=== PATIENT | male | born 1985 | race Two or more races ===

== ENCOUNTER 2021-04-30 02:21 | Emergency (ER) | payer OTHER ==
[~2021-04-30] VITALS: Ht 167.6 cm; Wt 99.8 kg
[2021-04-30 05:55] VITALS: BP 142/80
== END 2021-04-30 06:05 | disposition home or self-care (01) ==
LOC: ER 02:21
DX: S43.402A Unspecified sprain of left shoulder joint, initial encounter (principal); S00.83XA Contusion of other part of head, initial encounter; S46.812A Strain of other muscles, fascia and tendons at shoulder and upper arm level, left arm, initial encounter; S13.9XXA Sprain of joints and ligaments of unspecified parts of neck, initial encounter; M62.838 Other muscle spasm; E66.9 Obesity, unspecified; Z68.35 Body mass index [BMI] 35.0-35.9, adult; V43.52XA Car driver injured in collision with other type car in traffic accident, initial encounter; Y93.89 Activity, other specified; Y92.410 Unspecified street and highway as the place of occurrence of the external cause; Y99.8 Other external cause status
CPT/HCPCS: 70450; 70486; 72125; 73030